=== PATIENT | male | born 1955 | race African-American/Black ===

== ENCOUNTER 2024-08-12 14:36 | Inpatient (IN) | payer SELFPAY ==
[~2024-08-12] VITALS: Ht 185.4 cm; Wt 85.0 kg
[2024-08-12 14:56] VITALS: PULSE 73; RESP 23; O2SAT 96
[2024-08-12] MEDS: NOREPINEPHRINE 8MG/250ML PMX 250 ML IV ONE (15:15)
[2024-08-12] MEDS: METRONIDAZOLE 500 MG PREMIX 100 ML IV ONE (15:15)
[2024-08-12] MEDS ORDERED: VANCOMYCIN 1G PREMIX 200 ML IV SCH (15:15)
[2024-08-12 15:32] LABS: CHLORIDE 101 mEq/L (98-107); POTASSIUM 3.2 mEq/L (3.5-5.1); SODIUM 142 mEq/L (136-145)
[2024-08-12 15:33] LABS: CARBON DIOXIDE 17 mEq/L (21-32); HEMATOCRIT. 34.9 % (42.0-52.0); HEMOGLOBIN. 11.1 g/dL (14.0-18.0); MEAN CORPUSCULAR HEMOGLOBIN 31.3 pg (28.0-32.0); MEAN CORPUSCULAR VOLUME 97.8 fL (80.0-94.0); MEAN PLATELET VOLUME 8.3 fl (7.4-10.4); PLATELET 264 x1000/uL (130-400); RED BLOOD CELL COUNT 3.57 mill/uL (4.7-6.1); RED CELL DISTRIBUTION WIDTH 13.2 % (11.6-14.6); WHITE BLOOD COUNT 15.6 x1000/uL (4.5-11.0)
[2024-08-12 15:36] LABS: INR 1.4; PARTIAL THROMBOPLASTIN TIME 32.5 sec (23.4-31.0); PROTHROMBIN TIME 15.6 sec (9.6-11.0)
[2024-08-12 15:38] LABS: CREATININE 3.2 mg/dL (0.6-1.3); GLUCOSE 56 mg/dL (70-105); UREA NITROGEN BLOOD 49 mg/dL (9-23)
[2024-08-12 15:40] LABS: TROPONIN I HIGH SENSITIVITY 53 ng/L (3.0-53)
[2024-08-12 15:47] LABS: DIFFERENTIAL COMMENT 1
[2024-08-12 15:56] LABS: BG BASE EXCESS -17.6 mmol/L (-2.0-3.0); BG CARBOXYHEMOGLOBIN 0.3 % (0.5-1.5); BG DEOXYHEMOGLOBIN 0.1 % (0.0-5.0); BG FRACTION INSPIRED OXYGEN 100; BG OXYGEN SATURATION 99.9 % (94.0-98.0); BG OXYHEMOGLOBIN 99.6 % (94.0-98.0); BG PCO2 29.9 mmHg (35.0-48.0); BG PH 7.143 (7.350-7.450); BG PO2 518.8 mmHg (83.0-108.0); BG SAMPLE SITE RIGHT RADIAL; BG TOTAL HEMOGLOBIN 11.9 g/dL (13.5-17.5); BG VENT MODE VENT - AC
[2024-08-12] MEDS ORDERED: MIDAZOLAM 100MG/100ML PMX 100 ML IV PRN (16:00)
[2024-08-12] MEDS: MIDAZOLAM 100MG/100ML PMX 100 ML IV PRN (17:14)
[2024-08-12 17:16] LABS: PLATELET ESTIMATE NORMAL
[2024-08-12 17:40] VITALS: PULSE 82; RESP 20
[2024-08-12] MEDS ORDERED: VANCOMYCIN 1.5GM/250ML 250 ML IV NR (18:15)
[2024-08-12] MEDS ORDERED: PIPERACILLIN/TAZO 3.375G/50ML 50 ML IV NR (18:15)
[2024-08-12] MEDS ORDERED: FENTANYL CITRATE/PF 50MCG/ML 2ML VIAL IV NR (18:15)
[2024-08-12] MEDS ORDERED: PHENYLEPHRINE 50MG/250ML PMX 250 ML IV PRN ×2 (18:45)
[2024-08-12 18:56] LABS: BG BASE EXCESS -15.4 mmol/L (-2.0-3.0); BG CARBOXYHEMOGLOBIN 0.4 % (0.5-1.5); BG DEOXYHEMOGLOBIN 16.4 % (0.0-5.0); BG FRACTION INSPIRED OXYGEN 40; BG HCO3 ACT 12.1 mmol/L (21.0-28.0); BG METHEMOGLOBIN 0.3 % (0.5-1.5); BG OXYGEN SATURATION 83.5 % (94.0-98.0); BG OXYHEMOGLOBIN 82.9 % (94.0-98.0); BG PCO2 34.1 mmHg (35.0-48.0); BG PH 7.167 (7.350-7.450); BG PO2 62.2 mmHg (83.0-108.0); BG SAMPLE SITE RIGHT FEMORAL; BG TOTAL HEMOGLOBIN 13.6 g/dL (13.5-17.5); BG VENT MODE VENT - AC
[2024-08-12 19:00] VITALS: BP 73/43; O2SAT 98
[2024-08-12] MEDS ORDERED: IPRATROPIUM/ALBUTEROL 0.5-3(2.5)MG/3ML NEB HHN SCH (19:45)
[2024-08-12] MEDS ORDERED: ONDANSETRON HCL 4MG/2ML INJ IV PRN (19:45)
[2024-08-12] MEDS ORDERED: ACETAMINOPHEN 325MG TABLET PO PRN (19:45)
[2024-08-12] MEDS ORDERED: SODIUM BICARBONATE 8.4% 50MEQ/50ML SYR IV NR (19:45)
[2024-08-12 20:00] VITALS: PULSE 78; RESP 0; RESP 21; TEMP 34.4472; TEMP 34.44720; O2SAT 0
[2024-08-12] MEDS ORDERED: SODIUM BICARBONATE 150 MEQ in DEXTROSE 5% WATER 850 ML IV SCH (20:00)
[2024-08-12] MEDS ORDERED: PIPERACILLIN/TAZO 3.375G/50ML 50 ML IV SCH (22:00)
[2024-08-13] MEDS ORDERED: PANTOPRAZOLE SODIUM 40 MG/VIAL IV SCH (09:00)
[2024-08-13] MEDS ORDERED: ENOXAPARIN 30MG/0.3ML SYR SUBCUT SCH (09:00)
== END 2024-08-12 22:40 | DRG 720 ==
LOC: ER 14:36 → CVICU 15:59 → EDBEDREQTM 16:05 → EDBEDREQ 16:05
PROVIDERS: ADMIT Internal Medicine; ATTEND Internal Medicine
PROC: 5A12012 Performance of Cardiac Output, Single, Manual (ICD-10-PCS; principal; 2024-08-12)
PROC: 5A1935Z Respiratory Ventilation, Less than 24 Consecutive Hours (ICD-10-PCS; 2024-08-12)
PROC: 0BH17EZ Insertion of Endotracheal Airway into Trachea, Via Natural or Artificial Opening (ICD-10-PCS; 2024-08-12)
DX: A41.9 Sepsis, unspecified organism (principal); J96.00 Acute respiratory failure, unspecified whether with hypoxia or hypercapnia; I46.9 Cardiac arrest, cause unspecified; N17.0 Acute kidney failure with tubular necrosis; R57.9 Shock, unspecified; G93.40 Encephalopathy, unspecified; K56.2 Volvulus; D64.9 Anemia, unspecified; E87.20 Acidosis, unspecified; I49.01 Ventricular fibrillation; Z79.899 Other long term (current) drug therapy
CPT/HCPCS: 31500; 36415; 36600; 71045; 74018; 74176; 80048; 82375; 82805; 82962; 83880; 84145; 84484; 85025; 92950; 94002; 94003; 94070; 94664; 99291; J2250; J3370; J3490; J7070